=== PATIENT | male | born 1955 | race Caucasian/White ===

== ENCOUNTER 2018-10-14 05:19 | Day surgery (SDC) | payer OTHER ==
[~2018-10-14 05:19] MED LIST: ATORVASTATIN CA40 MG PO; BACTROBAN22 GM TP; COZAAR25 MG PO; SEPTRA DS TABLE1 TAB PO; ULTRACET PO
[2018-10-14] MEDS ORDERED: ULTRACET PO (09:17)
== END 2018-10-14 10:00 | disposition home or self-care (01) ==
LOC: CIR.AMB 05:19
DX: C20 Malignant neoplasm of rectum (principal)